=== PATIENT | female | born 1965 | race Caucasian/White ===

== ENCOUNTER 2020-06-02 11:43 | Outpatient (CLI) | payer BC, SELFPAY ==
--- NOTE | 2020-06-02 11:50 | MM_ITS ---
WS: [id number] BILATERAL SCREENING DIGITAL MAMMOGRAM WITH CAD HISTORY: SCREENING COMPARISON: 07/12/2017 and 10/18/2013 Bilateral CC and MLO views submitted. Computer aided detection analyzed. Breast composition: The breasts are heterogeneously dense, which may obscure small masses. No suspici ous masses, microcalcifications or architectural distortion. MM/[place] [id number] IMPRESSION: BI-RADS: 2-Benign FOLLOW UP: 1 Year Follow-up
--- NOTE | 2020-07-16 12:30 | PM.HP ---
Providers/Chief Complaint Admitting Physician: General Surgery Gold Nova MD Primary Care Provider: Martina Bee MD Chief Complaint: screening History of Present Illness Ladonna Ashley is a 55 year old female who underwent a screening colonoscopy 3 days ago. At that time the endoscopist (Dr. Mg) saw an inflamed polypoid lesion with a small amount of blood and some mucopurulent material around it in what he thought was the mid descending colon. A cold snare was used to remove the lesion but it subsequently became clear that this was probably an area involving an inverted diverticulum. The area was inked and the patient was sent home on oral antibiotics as a precaution. The following day she said she did fine. She had resumed a regular diet. Yesterday, however, she developed some lower abdominal cramping and initially just thought she was having some gas pain. She did have some loose stool last night but her abdominal pain continued until this morning when it was so bad that she came into the emergency department. She said she did have a low-grade fever last night. A CAT scan today showed evidence of some free air and an inflammatory process around the sigmoid colon. She says she has not been passing any more stool or flatus since yesterday. Review of Systems General: Reports: 10 or more systems reviewed and unremarkable except in HPI and below Const: Reports: fever(s) GI: Reports: abdominal pain and diarrhea Medications/Allergies Home Medications Medication Instructions Recorded Confirmed Last Taken Type estradiol 0.5 mg tablet 0.5 mg PO QAM 04/27/20 07/16/20 07/15/20 History medroxyprogesterone 5 mg PO QAM 07/09/20 07/16/20 07/15/20 History ciprofloxacin HCl [Cipro] 500 mg PO BID #10 tab 07/13/20 07/16/20 07/15/20 Rx metronidazole 250 mg PO BID #10 tab 07/13/20 07/16/20 07/15/20 Rx cholecalciferol (vitamin D3) 125 mcg PO QAM 07/16/20 07/16/20 07/15/20 History [Vitamin D3] gabapentin See Rx Instructions .ROUTE .COMPLEX 07/16/20 07/16/20 Unknown History Allergies Allergy/AdvReac Type Severity Reaction Status Date / Time No Known Allergies Allergy Verified 07/16/20 10:26 PFSH Acute PFSH: Medical History (Updated 07/16/20 @ 12:49 by Gold Nova MD) Diverticulosis Family history of colon cancer in father Surgical History (Updated 07/16/20 @ 12:49 by Gold Nova MD) History of ear surgery Left -- 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 She currently does not appear to be in any acute distress. The pupils seem equal. No carotid bruits are heard. The lungs are clear anteriorly. The heart is regular. The abdomen is fairly quiet but is not distended. She does have some scattered mild tenderness but has more significant tenderness in the left lower quadrant. No obvious masses are palpated. The extremities reveal no edema. Neurologically the patient appears to be grossly intact. Data Other Labs: Pathology/colonoscopy specimen 07/13/2020: Final Diagnosis A. Colon, descending colon polyp , polypectomy: ?Benign reactive severely inflamed colonic mucosa with acute cryptitis and crypt abscesses (polypoid appearance). ?No dysplasia or malignancy identified. CT Abd/Pel: Radiologist's impression: CT abdomen/pelvis 07/16/2020 IMPRESSION: 1. Moderate amount of free air in the peritoneal cavity. 2. Extensive inflammatory changes with several adjacent foci of free air involving the medial sigmoid colon. This may be the site of perforation. 3. Small amount of free fluid in the pelvis. 4. No abscess. 5. Hepatic cysts. A&P Assessment and plan (1) Perforation of sigmoid colon: The CAT scan would suggest that the patient has more of a sigmoid perforation as opposed to any area in the descending colon. I have to assume that this was the same area that was involved in some apparent focal but probable acute diverticulitis at the time of the colonoscopy 3 days ago. After reviewing the CAT scan, it is clear that the patient has evidence of free air but it is not a tremendous amount. With all due respect to the radiologist, I would consider this to be a small amount of free air as opposed to moderate, for what it is worth. I told the patient that since she has been eating a regular diet since Monday and passing stool in addition to the fact that she already has significant inflammatory changes, unfortunately I do not think that doing surgery and repairing this area is going to be a very smart option and is probably doomed to failure. We discussed a Dedra procedure in some detail. Given the fact that she does not have a tremendous amount of free air, however, I discussed the conservative option of putting her on some broad-spectrum intravenous antibiotics initially to see if she improves and if there is any chance that we can try to avoid surgery; I made her aware that sometimes small perforations can seal over and heal without surgery. She would like to give that a try before proceeding to the operating room. I will start the patient on broad-spectrum intravenous antibiotics. Her condition will be reassessed at least daily if not more often. If she shows evidence of improvement, then I think continued conservative management may be possible. If she does not, or certainly if she worsens, then I am afraid that we will need to proceed to the operating room for a likely Dedra procedure. Status: Acute Attestations Medical Necessity Statement*: Based on my medical assessment, presenting symptoms, medical accuity and consideration of surgical therapy, I expect this patient will require treatment in the hospital for a period spanning at least 2 midnights. Coding Level of Care Code Acute Clinical Research Administrator for Pierre Gamez Diagnoses Perforation of sigmoid colon K63.1
== END 2020-06-02 11:44 | disposition home or self-care (01) ==
LOC: RADSHAW 11:47
PROVIDERS: Family Provider Family Medicine; PCP Family Medicine; Visit Provider Family Medicine
DX: Z12.31 Encounter for screening mammogram for malignant neoplasm of breast (principal)
CPT/HCPCS: 12345; 77067

== ENCOUNTER 2020-07-13 09:16 | Day surgery (SDC) | payer BC, SELFPAY ==
[2020-07-09 12:07] VITALS: BMI 28.3
[2020-07-13 09:32] VITALS: PULSE 88; RESP 18; TEMP 36.1; O2SAT 97
[2020-07-13 09:41] VITALS: BP 167/91
[2020-07-13] MEDS: sodium chloride 0.9% 1,000 ML 30 ML IV (09:43)
--- NOTE | 2020-07-13 09:57 | ANES.PREANE2 ---
Pre-Anesthetic Assessment Pre-Anesthetic Assessment: Height/Weight: Height 1.6 m Weight 72.575 kg Temp Pulse Resp BP Pulse Ox 97.0 F L 88 18 167/91 97 07/13/20 09:32 07/13/20 09:32 07/13/20 09:32 07/13/20 09:41 07/13/20 09:32 Preop Diagnosis: Family Hx colon cancer Proposed Procedure: Operation Date: 07/13/20 10:30 Proposed Procedures p Colonoscopy 70080 Z80.0(Not Applicable) - Neo Mg MD Familial anesthetic complications: None Was Beta Jett taken within 24 hours: N/A Last intake: Intake Last Liquid Date 07/12/20 Last Liquid Time 20:00 Last Solid Date 07/11/20 Last Solid Time 21:00 Social: Social History: No alcohol and No tobacco Exam: Pre-Anes Outpt Exam: alert, oriented x 3, clear to auscultation bilaterally and regular rate & rhythm Airway: Cervical ROM: WNL MP: 1 Dentition: Full Anesthetic Plan: ASA status: 1 Anesthesia: MAC Risk of > 500 ml blood loss (7ml/kg in children): No Meds/Allergies Current Medications: Current Medications Generic Name Dose Route Start Last Admin Trade Name Freq PRN Reason Stop Dose Admin Sodium Chloride 1,000 mls @ 30 ml s/hr 07/13/20 09:30 07/13/20 09:43 Sodium Chloride 0.9% IV 30 mls/hr .Q24H CAROLINE Administration PFSH Anesthesia PFSH: Family History (Updated 04/27/20 @ 09:[address]) Mother Diabetes Hypertension Sister Hypothyroidism Father Cancer Social History (Updated 05/13/20 @ 13:[address]) Smoking and tobacco status: former smoker Alcohol intake: never History of recent travel: No Data Anesthesia Cardiac Studies: No Data to Display
--- NOTE | 2020-07-13 10:01 | W.PM.OPSFHP ---
Same Day Surgery H&P Indication for Procedure/HPI DATE OF PROCEDURE: July 13, 2020 CHIEF COMPLAINT/INDICATIONFOR SURGICAL PROCEDURE: Family history of colon cancer PREOP DIAGNOSIS: Family Hx colon cancer PLANNED PROCEDRUE: Operation Date: 07/13/20 10:30 Proposed Procedures p Colonoscopy 00324 Z80.0(Not Applicable) - Neo Mg MD Medications/Allergies* Home Medications Medication Instructions Recorded Confirmed Type cholecalciferol (vitamin D3) 50 50 mcg PO DAILY 04/27/20 07/13/20 History mcg (2,000 unit) chewable tablet estradiol 0.5 mg tablet 0.5 mg PO DAILY 04/27/20 07/13/20 History medroxyprogesterone 5 mg PO DAILY 07/09/20 07/13/20 History Allergies/Adverse Reactions Allergy/AdvReac Type Severity Reaction Status Date / Time No Known Allergies Allergy Verified 07/13/20 09:27 Current Medications: Generic Name Dose Route Start Last Admin Trade Name Freq PRN Reason Stop Dose Admin Sodium Chloride 1,000 mls @ 30 mls/hr 07/13/20 09:30 07/13/20 09:43 Sodium Chloride 0.9% IV 30 mls/hr .Q24H CAROLINE Administration Pertinent History/Comorbid Conditions* Family History (Updated 04/27/20 @ 09:27 by COSTA Brannon) Diabetes Mother Hypothyroidism Sister Cancer Father Hypertension Mother Social History Smoking and tobacco status: former smoker Alcohol intake: never History of recent travel: No Pertinent Exam Findings alert, oriented x 3, clear to auscultation bilaterally, regular rate & rhythm, operative site marked and procedure specific exam findings Recommendations Surgery/Procedure today Coding Level of Care Code Acute Perforating Machine Operator for Pierre Gamez
[2020-07-13 12:04] VITALS: BP 146/98; PULSE 73; RESP 16; TEMP 36.3; O2SAT 96
[2020-07-13] MEDS: ondansetron 2 mg/ML SDV 2 mL 4 MG IVP (12:27)
[2020-07-13] MEDS: cefTRIAXone 1,000 MG in sodium chloride 0.9% (plus) 50 ML 100 MG IV (12:35)
[2020-07-13 12:51] VITALS: BP 178/80; PULSE 67; RESP 16; O2SAT 98
--- NOTE | 2020-07-13 15:43 | ANE.PACU2 ---
Inpatient post-anesthesia follow up: Airway intact: Yes Vital signs: Temperature 97.4 F Pulse Rate 67 Respiratory Rate 16 Blood Pressure 178/80 Pulse Oximetry 98 Oxygen Delivery Me thod Room Air Oxygen Flow Rate Fraction of Inspir ed Oxygen Hydration adequate: Yes Nausea and vomiting: No Pain level: 1 Mental status: Baseline
== END 2020-07-13 13:09 | disposition home or self-care (01) ==
PROVIDERS: PCP Family Medicine; Visit Provider Internal Medicine
PROC: 0DJD8ZZ Inspection of Lower Intestinal Tract, Via Natural or Artificial Opening Endoscopic (ICD-10-PCS; CPT 45378; principal; 2020-07-13 10:30)
DX: K57.30 Diverticulosis of large intestine without perforation or abscess without bleeding (principal); Z80.0 Family history of malignant neoplasm of digestive organs; Z82.49 Family history of ischemic heart disease and other diseases of the circulatory system; Z83.3 Family history of diabetes mellitus; Z87.891 Personal history of nicotine dependence
CPT/HCPCS: 12345; 45381; 45385; 88305; 96374; J0696; J2405; J2704; J2710; J3010; J3490; J7030

== ENCOUNTER 2020-07-16 09:58 | Inpatient (IN) | payer BC, SELFPAY ==
[2020-07-16] VITALS (10 sets, daily range): BP systolic 122–157; BP diastolic 71–110; PULSE 86–110; RESP 16–20; TEMP 36.5–36.9; O2SAT 94–97; BMI 27.8
--- NOTE | 2020-07-16 10:08 | CT_ITS ---
WS: [id number] CT ABDOMEN AND PELVIS WITH CONTRAST HISTORY: Colon perforation TECHNIQUE: Imaging performed of the abdomen and pelvis with IV contrast. Single phase imaging of the abdomen. Coronal and sagittal reformats are submitted. All CT scans at [facility] use at least one of these dose optimization techniques: automated exposure control; mA and/or kV adjustment per patient size (includes targeted exams where dose is matched to clinical indication); or iterativ e reconstruction. IV CONTRAST: Omnipaque 300; 95 mL IV. Oral contrast: No DLP: 793.11 mGy.cm COMPARISON: None available. Lower thorax: Lung bases are clear. Heart is normal size. Small hiatal hernia. Liver/biliary system: Small hepatic cysts. The largest in the central liver measures 2.7 cm. No bile duct dilatation. Gallbladder: Normal. No gallstones or wall thickening. No pericholecystic fluid. Pancreas: Normal. Spleen: Normal. Adrenal glands: Normal. Right kidney: Normal. Left kidney: Normal. Aorta: Normal. Moderate amount of free air throughout the abdomen and pelvis. Pockets of free air surrounding the li sandra and spleen extending into the gallbladder fossa and around the celiac axis. There are several foc i of free air demonstrated throughout the abdominal cavity and into the pelvis. Lymphadenopathy: None. Free fluid: Small amount of free fluid in the pelvis. GI tract: Numerous diverticula are noted in the sigmoid colon. There is an area of marked inflammatio n with fat stranding and mucosal thickening involving the medial aspect of the sigmoid with adjacent small foci of air. This may be the site of perforation. Abdominal wall: Very small umbilical containing hernia. Pelvis: Small amount of free fluid in the pelvis. Uterus is midline and anteverted. No pelvic mass. Bones: Unremarkable. CT/CT abdomen pelvis w con* [id number] IMPRESSION: 1. Moderate amount of free air in the peritoneal cavity. 2. Extensive inflammatory changes with several adjacent foci of free air invol ving the medial sigmoid colon. This may be the site of perforation. 3. Small amount of free fluid in the pelvis. 4. No abscess. 5. Hepatic cysts. Notified Mario Alberto Joshua MD at 07/16/2020 11:05 AM.
--- NOTE | 2020-07-16 10:12 | W.ED.ABDPA2 ---
HPI - Abdominal Pain General: Chief Complaint: Abdominal Pain Stated Complaint: COLONOSCOPY ISSUES Time Seen by Provider: 07/16/20 10:05 Source: patient, family, RN notes reviewed and old records reviewed Mode of arrival: ambulatory Limitations: no limitations History of Present Illness: HPI narrative: This patient is a 55-year-old female who presents to the emergency department for abdominal pain. Patient had a colonoscopy on Monday with Dr. Mg. Patient states that Dr. Mg thought he was snipping a polyp in her colon but ended up being a diverticuli causing a mild microperforation. Patient was placed on oral antibiotics and discharged home to follow-up with Dr. Mg today. Patient states in increased of abdominal pain and had a low-grade fever last night. But no fever upon arrival. Patient states that she just could not take the pain and come back to the emergency department today. Patient denies nausea or vomiting MD elicited complaint: abdominal pain Pertinent past history: diverticulitis Onset (ago): day(s) (3) Pain Consistency: constant Location: Diffuse Severity: moderate Quality: aching Radiation: none Migration to: no migration Exacerbating factors: nothing Relieving factors: nothing Associated Symptoms: Reports bloating and GI cramping; Denies chills, constipation, diarrhea, fever(s), hematemesis, nausea and vomiting Review of Systems General: Reports: 10 or more systems reviewed and unremarkable except in HPI and below Const: Reports: change in appetite; Denies: fever(s), chills or body aches ENMT: Denies: throat pain or mouth pain Card: Denies: chest pain, palpitations or irregular heart rhythm Resp: Denies: dyspnea GI: Reports: abdominal pain, bloating and GI cramping; Denies: nausea, vomiting, hematemesis, diarrhea or constipation : Denies: flank pain Skin/Breast: Denies: skin tenderness PFSH ED PFSH: Family History Mother Diabetes Hypertension Sister Hypothyroidism Father Cancer Social History Smoking and tobacco status: former smoker Alcohol intake: never History of recent travel: No Physical Exam Const: COMMON NORMALS: no acute distress, average body habitus, patient oriented x3, healthy appearing, alert and well nourished GENERAL APPEARANCE: cooperative ORIENTATION/CONSCIOUSNESS: Yes awake, Yes oriented to person, Yes oriented to place and Yes oriented to time HENMT: COMMON NORMALS: atraumatic and hearing grossly normal bilaterally HEAD & SCALP: atraumatic Eye: COMMON NORMALS: Equal, round and reactive pupils present PUPIL: Yes Equal, round and reactive pupils present Neck/C-Spine: COMMON NORMALS: no JVD Chest: COMMONS NORMALS: normal inspection of the chest and normal palpation of entire chest wall Resp: COMMON NORMALS: normal respiratory effort, No retractions, No use of accessory muscles, clear to auscultation bilaterally and percussion normal AUSCULTATION: clear to auscultation bilaterally PERCUSSION: percussion normal Cardio: COMMON NORMALS: no JVD, regular rate and regular rhythm RATE: regular rate RHYTHM: regular rhythm GI: AUSCULTATION: Yes Hypoactive bowel sounds present PALPATION: Yes Tenderness to palpation present (GI) and Yes Guarding due to palpation present (GI) RECTAL EXAM: deferred Neuro: COMMON NORMALS: patient oriented x3 SENSORIUM/ORIENTATION: Yes alert, Yes oriented to person, Yes oriented to place and Yes oriented to time Course Consultations: Consultation #1: Patient was seen and examined by Dr. Nova general surgery he states that he will admit the patient to the hospital for continued observation and IV antibiotics due to perforated Time: 12:42 Vital Signs: Vital signs: Vital Signs Temperature 98.2 F 07/16/20 10:03 Pulse Rate 96 07/16/20 12:36 Respiratory Rate 16 07/16/20 12:36 Blood Pressure 141/84 07/16/20 12:36 Pulse Oximetry 96 07/16/20 12:36 MDM - Abdominal Pain Lab Data: Labs: Lab Results 07/16/20 07/16/20 07/16/20 Range/Units 10:29 10:29 10:29 WBC 18.1 H (4.0-10.0) 10^3/ uL RBC 4.74 (4.1-5.3) 10^6/u L Hgb 14.5 (11.5-15.3) g/dL Hct 43.0 (37.0-47.0) % MCV 90.7 (81-99) fL MCH 30.6 (28.0-34.0) pg MCHC 33.7 (30.0-36.0) g/dL RDW 12.6 (12.1-15.1) % Plt Count 293 (130-400) 10^3/c mm MPV 9.8 (7.4-10.4) fL Neut % (Auto) 87.3 % Lymph % (Auto) 8.2 % [place] % (Auto) 3.5 % Eos % (Auto) 0.0 % Baso % (Auto) 0.2 % Neut # (Auto) 15.76 H (1.8-7.7) 10^3/u L Lymph # (Auto) 1.5 (0.8-4.8) 10^3/u L [place] # (Auto) 0.6 (0.2-0.9) 10^3/u L Eos # (Auto) 0.0 (0.0-0.8) 10^3/u L Baso # (Auto) 0.0 (0.0-0.1) 10^3/u L Nucleated RBC % (a uto) 0 % Nucleated RBCs # 0.0 /100WBC PT 14.70 (12.1-14.9) SECO NDS INR 1.12 (0.8-1.2) APTT 32.7 (23.9-36.7) SECO NDS Sodium 138 (136-145) mmol/L Potassium 3.6 (3.5-5.1) mmol/L Chloride 102 (98-107) mmol/L Carbon Dioxide 26 (22-29) mmol/L Anion Gap 13.6 (5-19) BUN 8 (6-20) mg/dL Creatinine 0.7 (0.5-0.9) mg/dL GFR Calculation 86.2 L (90-130) mL/min Glucose 151 H (65-115) mg/dL Calculated Osmolal ity 287 (285-295) mOsm/k g Calcium 9.3 (8.5-10.5) mg/dL Total Bilirubin 0.7 (0.15-1.2) mg/dL AST 32 (0-32) U/L ALT 31 (0-33) U/L Alkaline Phosphata se 95 (35-105) IU/L Total Protein 6.6 (6.6-8.7) g/dL Albumin 4.1 (3.5-5.2) g/dL Globulin 2.5 (1.3-4.6) g/dL Lipase 11 L (13-60) U/L Imaging Data ^: CT Abd/Pel: Attestation: I personally reviewed and interpreted this imaging study as follows: Radiologist's impression: IMPRESSION: 1. Moderate amount of free air in the peritoneal cavity. 2. Extensive inflammatory changes with several adjacent foci of free air involving the medial sigmoid colon. This may be the site of perforation. 3. Small amount of free fluid in the pelvis. 4. No abscess. 5. Hepatic cysts. Discharge Plan Discharge Patient Disposition: Admitted As Inpatient Clinical Impression: Bowel perforation, Diverticulitis Condition: Stable Coding Level of Care Code ED Extended Day Teacher for Pierre Fwd Exam Comprehensive
--- NOTE | 2020-07-16 10:29 | PC.NURSE ---
Patient educated urine sample needed. Patient reports that she is unable to go at this time. Educated we need on as soon as we can and to use the call light when she is able to go. Patient has no needs at this time. Will continue to monitor patient.
[2020-07-16] MEDS: sodium chloride 0.9% 1,000 ML 999 ML IV (10:32)
[2020-07-16] MEDS: ondansetron 2 mg/ML SDV 2 mL 4 MG IVP ×2 (10:33→15:01)
[2020-07-16] MEDS: morphine 4 mg/mL SDV 1 mL IVP (10:33)
[2020-07-16] MEDS: iohexol 300 mg/mL 100 mL Btl IV (10:46)
[2020-07-16 10:54] LABS: Basophils % 0.2 %; Hemoglobin 14.5 g/dL (11.5-15.3); Lymphocytes # 1.5 10^3/uL (0.8-4.8); Lymphocytes % 8.2 %; Mean Corpuscular HGB Conc 33.7 g/dL (30.0-36.0); Mean Corpuscular Hemoglobin 30.6 pg (28.0-34.0); Mean Corpuscular Volume 90.7 fL (81-99); Mean Platelet Volume 9.8 fL (7.4-10.4); Monocytes # 0.6 10^3/uL (0.2-0.9); Monocytes % 3.5 %; Neutrophils # 15.76 10^3/uL (1.8-7.7); Neutrophils % 87.3 %; Nucleated Red Blood Cells % 0 %; Platelet Count 293 10^3/cmm (130-400); Red Blood Count 4.74 10^6/uL (4.1-5.3); Red Cell Distribution Width 12.6 % (12.1-15.1); White Blood Count 18.1 10^3/uL (4.0-10.0)
[2020-07-16 11:05] LABS: Alanine Aminotransferase 31 U/L (0-33); Albumin Level 4.1 g/dL (3.5-5.2); Alkaline Phosphatase 95 IU/L (35-105); Anion Gap 13.6 (5-19); Aspartate Amino Transferase 32 U/L (0-32); Blood Urea Nitrogen 8 mg/dL (6-20); Calcium 9.3 mg/dL (8.5-10.5); Carbon Dioxide 26 mmol/L (22-29); Chloride 102 mmol/L (98-107); Globulin 2.5 g/dL (1.3-4.6); Glomerular Filtration Rate 86.2 mL/min (90-130); Glucose 151 mg/dL (65-115); Lipase 11 U/L (13-60); Osmolality Calculated 287 mOsm/kg (285-295); Potassium 3.6 mmol/L (3.5-5.1); Sodium 138 mmol/L (136-145); Total Bilirubin 0.7 mg/dL (0.15-1.2); Total Protein 6.6 g/dL (6.6-8.7)
[2020-07-16 11:08] LABS: INR 1.12 (0.8-1.2); Partial Thromboplastin Time 32.7 SECONDS (23.9-36.7)
[2020-07-16] MEDS: metroNIDAZOLE IV 500 MG/100 ML PREMIX 100 MG IV ×2 (11:32→18:35)
[2020-07-16] MEDS: levofloxacin-dextrose 5 % 750 MG/150 ML PREMIX 100 MG IV (11:33)
[2020-07-16 13:26] LABS: Add Urine Microscopic? YES; Bilirubin Urine Neg (Negative); Blood Urine Trace (Negative); Glucose Urine UA Trace (Normal); Ketones Urine 1+ (Negative); Leukocyte Esterase Urine Negative (Negative); Nitrate Urine Negative (Negative); Protein Urine Neg (Negative); Specific Gravity, Urine 1.005 (1.005-1.030); Urine Appearance Clear (CLEAR); Urine Color Yellow (Yellow); Urobilinogen Urine Norm (Negative)
[2020-07-16 13:50] LABS: Bacteria Urine 1+ /hpf; RBC Urine 0-4 /hpf (0-2); Transitional Epi Cells Urine 0-4 /hpf
[2020-07-16 13:51] LABS: Add Urine Culture? No
[2020-07-16] MEDS: famotidine 20 mg/2 mL INJ IVP (15:00)
[2020-07-16] MEDS: heparin 5,000 unit/mL INJ 1 mL 5000 UNIT SUBCUT (15:01)
[2020-07-16] MEDS: D5-NS 0.45% + KCL 20 mEq 20 MEQ/1,000 ML BAG 100 MEQ IV (15:01)
[2020-07-16] MEDS: piperacillin-tazobactam 3.375 GM in sodium chloride 0.9% (plus) 50 ML IV (15:01)
[2020-07-17] VITALS (8 sets, daily range): BP systolic 111–138; BP diastolic 70–86; PULSE 84–97; RESP 16–22; TEMP 36.5–37.1; O2SAT 94–98
[2020-07-17] MEDS: morphine 4 mg/mL SDV 1 mL IVP ×2 (00:12→04:43)
[2020-07-17] MEDS: ondansetron 2 mg/ML SDV 2 mL 4 MG IVP ×4 (00:14→14:53)
[2020-07-17] MEDS: piperacillin-tazobactam 3.375 GM in sodium chloride 0.9% (plus) 50 ML IV ×3 (00:33→17:08)
[2020-07-17] MEDS: D5-NS 0.45% + KCL 20 mEq 20 MEQ/1,000 ML BAG 100 MEQ IV ×2 (01:18→14:46)
[2020-07-17 02:37] LABS: Basophils % 0.2 %; Eosinophils % 0.2 %; Hematocrit 37.9 % (37.0-47.0); Hemoglobin 12.5 g/dL (11.5-15.3); Lymphocytes # 1.7 10^3/uL (0.8-4.8); Lymphocytes % 11.5 %; Mean Corpuscular Hemoglobin 30.3 pg (28.0-34.0); Mean Corpuscular Volume 91.8 fL (81-99); Mean Platelet Volume 9.8 fL (7.4-10.4); Monocytes # 0.7 10^3/uL (0.2-0.9); Neutrophils % 82.7 %; Nucleated Red Blood Cells % 0 %; Platelet Count 239 10^3/cmm (130-400); Red Blood Count 4.13 10^6/uL (4.1-5.3); White Blood Count 14.6 10^3/uL (4.0-10.0)
[2020-07-17] MEDS: famotidine 20 mg/2 mL INJ IVP ×2 (03:17→14:09)
[2020-07-17 03:21] LABS: Anion Gap 12.8 (5-19); Blood Urea Nitrogen 5 mg/dL (6-20); Calcium 8.6 mg/dL (8.5-10.5); Carbon Dioxide 24 mmol/L (22-29); Chloride 106 mmol/L (98-107); Glucose 173 mg/dL (65-115); Osmolality Calculated 289 mOsm/kg (285-295); Potassium 3.8 mmol/L (3.5-5.1); Sodium 139 mmol/L (136-145)
[2020-07-17] MEDS: metroNIDAZOLE IV 500 MG/100 ML PREMIX 100 MG IV ×3 (03:30→18:00)
[2020-07-17] MEDS: heparin 5,000 unit/mL INJ 1 mL 5000 UNIT SUBCUT ×2 (03:30→14:09)
--- NOTE | 2020-07-17 08:46 | PM.PN ---
Subjective Subjective: Interval history: The patient says she feels about the same. She is not passing any flatus. Vitals/I&O/Wt Last Vital Signs Temp 97.8 F 07/17/20 07:05 Pulse 87 07/17/20 07:05 Resp 18 07/17/20 07:05 BP 124/79 07/17/20 07:05 Pulse Ox 94 07/17/20 07:05 07/16/20 07/17/20 07/17/20 22:59 06:59 14:59 Intake Total 150 / 2450 1050 / 2450 Balance 150 / 2450 1050 / 2450 Weight last 48 hrs Weight 157 lb Physical Exam Narrative: EXAM NARRATIVE: The patient is afebrile. The computer indicates she has not urinated but she said she has been urinating all night long. She actually has better bowel sounds this morning. She does have continued tenderness in the abdomen but no worse than yesterday. Data : 07/17/20 02:03 07/17/20 02:03 Micro: Microbiology 07/16/20 12:03 Blood Culture - Preliminary Blood SPECIMEN COLLECTED 07/16/20 10:29 Blood Culture - Preliminary Blood SPECIMEN COLLECTED A&P Assessment and plan (1) Perforation of sigmoid colon: White blood cell count has improved. The patient is afebrile. I made her aware that sometimes it takes a couple of days for people to start feeling better, even if the antibiotic regimen is working well. Continue intravenous antibiotics. Status: Acute Attestations Medical Necessity Statement*: Patient requires continued inpatient care for sigmoid perforation/intravenous antibiotics. Coding Level of Care Code Acute Drawer In Jacquard Loom for Pierre Gamez Diagnoses Perforation of sigmoid colon K63.1
--- NOTE | 2020-07-17 11:31 | PC.NURSE ---
Vital Signs V/s documented by student nurse was reviewed by this psychiatric nursing assistant.
--- NOTE | 2020-07-17 11:51 | PC.NURSE ---
Review of student nurse documentation complete. Patient vital signs 138/86, HR 97, R 22, T max 98.7. Pain rated 6/10. Primary nurse notified. Patient refused shower and linen change due to waiting on to arrive.
--- NOTE | 2020-07-17 12:19 | PC.NURSE ---
nursing students got vital signs
--- NOTE | 2020-07-17 14:02 | PC.CHAP ---
Pastoral Care Encounter/Spiritual Assessment Type of Contact [] Declined drill press tender visit [] Patient/Family/Request visit [] Outpatient visit [] Follow-up visit [] Physician referral [] Code/Alert [xx] Routine visit [] Staff referral [] Actively dying [] Patient sleeping [] Family support [] [] Out of room [] Palliative care [] [] Receiving care in room [] Pre-surgical visit [] Trauma [] Long length of stay [] ICU visit [] Other: Relational/Emotional Strength [xx] Patient feels connected with others/family/visitors/staff [] Distress [] Loneliness/isolation [] Abandonment Spirituality of Patient [xx] Person of Coco [xx] Attends Mormonism of their [place] [xx] Believes in Prayer [xx] Reads Bible or Anglican materials [] There are Spiritual issues to be addressed Hydroelectric Production Technician Interventions [xx] Prayer [xx] Active listening [xx] Non-anxious presence [] Spiritual/emotional support [] Crisis/trauma care [] Spiritual counseling [] Bereavement support [] Provided bereavement packet [] Provided Bible/devotional materials [] Provided toy/stuffed animal, coloring book to patient or family member [] Provided Communion [] Anointing/[place] [] Salvation [xx] Completed spiritual assessment [] Other: Impact on Illness or Injury [] Angry [] Fearful [] Anxious [] Often cries [] Exhaustion [] Unable to work [] Unable to attend latter-day [] Unable to walk/stand [] Unable to read [] Unable to drive [] Unable to eat/drink [] Unable to sleep [] Unable to be with family [] Patient intubated [] Other: Summary Patient's is able to visit her daily and bring her items she requests. Patient should resume normal activities once she is discharged. Patient requested special prayer that the antibiotics she is on will begin action immediately so she can get well and leave sooner. Time spent with patient 12 minutes
[2020-07-18] VITALS (7 sets, daily range): BP systolic 113–135; BP diastolic 63–83; PULSE 77–92; RESP 15–20; TEMP 36.5–36.9; O2SAT 93–96
[2020-07-18] MEDS: piperacillin-tazobactam 3.375 GM in sodium chloride 0.9% (plus) 50 ML IV ×3 (00:19→17:28)
[2020-07-18] MEDS: famotidine 20 mg/2 mL INJ IVP ×2 (02:42→17:27)
[2020-07-18] MEDS: metroNIDAZOLE IV 500 MG/100 ML PREMIX 100 MG IV ×3 (02:44→21:33)
[2020-07-18] MEDS: D5-NS 0.45% + KCL 20 mEq 20 MEQ/1,000 ML BAG 100 MEQ IV ×2 (02:44→17:27)
[2020-07-18] MEDS: heparin 5,000 unit/mL INJ 1 mL 5000 UNIT SUBCUT ×2 (02:44→17:27)
[2020-07-18 04:58] LABS: Basophils % 0.2 %; Eosinophils # 0.1 10^3/uL (0.0-0.8); Eosinophils % 0.9 %; Hematocrit 38.6 % (37.0-47.0); Hemoglobin 12.5 g/dL (11.5-15.3); Lymphocytes % 15.9 %; Mean Corpuscular HGB Conc 32.4 g/dL (30.0-36.0); Mean Corpuscular Hemoglobin 30.6 pg (28.0-34.0); Mean Corpuscular Volume 94.4 fL (81-99); Mean Platelet Volume 10.2 fL (7.4-10.4); Monocytes # 0.7 10^3/uL (0.2-0.9); Monocytes % 5.5 %; Neutrophils # 9.48 10^3/uL (1.8-7.7); Neutrophils % 77.1 %; Nucleated Red Blood Cells % 0 %; Platelet Count 259 10^3/cmm (130-400); Red Blood Count 4.09 10^6/uL (4.1-5.3); White Blood Count 12.3 10^3/uL (4.0-10.0)
[2020-07-18 05:21] LABS: Anion Gap 10.6 (5-19); Blood Urea Nitrogen 4 mg/dL (6-20); Calcium 8.5 mg/dL (8.5-10.5); Carbon Dioxide 26 mmol/L (22-29); Chloride 104 mmol/L (98-107); Glomerular Filtration Rate 86.2 mL/min (90-130); Glucose 156 mg/dL (65-115); Osmolality Calculated 284 mOsm/kg (285-295); Potassium 3.6 mmol/L (3.5-5.1); Sodium 137 mmol/L (136-145)
--- NOTE | 2020-07-18 08:01 | PM.PN ---
Subjective Subjective: Interval history: The patient says she is doing better today. She is hungry. She has had 2 loose bowel movements. Her abdominal pain has decreased considerably. Vitals/I&O/Wt Last Vital Signs Temp 97.9 F 07/18/20 07:18 Pulse 82 07/18/20 07:18 Resp 17 07/18/20 07:18 BP 135/79 07/18/20 07:18 Pulse Ox 93 07/18/20 07:18 07/17/20 07/18/20 07/18/20 22:59 06:59 14:59 Intake Total 250 / 2300 1000 / 2300 Output Total 800 / 1600 600 / 1600 500 / 500 Balance -550 / 700 400 / 700 -500 / -500 Weight last 48 hrs Weight 157 lb Physical Exam Narrative: EXAM NARRATIVE: Bowel sounds are present. The patient's tenderness is clearly improved on exam today. Data : 07/18/20 03:52 07/18/20 03:52 Micro: Microbiology 07/16/20 12:03 Blood Culture - Preliminary Blood NEGATIVE TO DATE 07/16/20 10:29 Blood Culture - Preliminary Blood NEGATIVE TO DATE A&P Assessment and plan (1) Perforation of sigmoid colon: Patient remains afebrile and white blood cell count continues to defervesce. Clinical improvement in the patient's level of pain. I am going to allow her a clear liquid diet. Continue intravenous antibiotics. Status: Acute Attestations Medical Necessity Statement*: Patient requires continued inpatient care for intravenous antibiotics following sigmoid perforation. Coding Level of Care Code Acute Bacteriologist Industrial for Pierre Gamez Diagnoses Perforation of sigmoid colon K63.1
[2020-07-19] MEDS: piperacillin-tazobactam 3.375 GM in sodium chloride 0.9% (plus) 50 ML IV ×3 (00:12→16:00)
[2020-07-19 03:48] VITALS: BP 123/69; PULSE 78; RESP 18; TEMP 36.6; O2SAT 96
[2020-07-19] MEDS: heparin 5,000 unit/mL INJ 1 mL 5000 UNIT SUBCUT ×2 (03:57→14:23)
[2020-07-19] MEDS: famotidine 20 mg/2 mL INJ IVP ×2 (03:58→14:23)
[2020-07-19] MEDS: D5-NS 0.45% + KCL 20 mEq 20 MEQ/1,000 ML BAG 100 MEQ IV ×2 (04:00→20:48)
[2020-07-19] MEDS: metroNIDAZOLE IV 500 MG/100 ML PREMIX 100 MG IV ×3 (04:01→20:44)
[2020-07-19 05:29] LABS: Basophils % 0.3 %; Eosinophils # 0.2 10^3/uL (0.0-0.8); Eosinophils % 1.9 %; Hematocrit 37.1 % (37.0-47.0); Lymphocytes # 2.3 10^3/uL (0.8-4.8); Lymphocytes % 25.2 %; Mean Corpuscular HGB Conc 32.3 g/dL (30.0-36.0); Mean Corpuscular Volume 92.8 fL (81-99); Mean Platelet Volume 10.3 fL (7.4-10.4); Monocytes # 0.6 10^3/uL (0.2-0.9); Monocytes % 6.7 %; Neutrophils # 5.92 10^3/uL (1.8-7.7); Neutrophils % 65.5 %; Nucleated Red Blood Cells % 0 %; Platelet Count 283 10^3/cmm (130-400); Red Cell Distribution Width 12.9 % (12.1-15.1); White Blood Count 9.1 10^3/uL (4.0-10.0)
[2020-07-19 06:05] LABS: Anion Gap 12.7 (5-19); Blood Urea Nitrogen 4 mg/dL (6-20); Calcium 8.6 mg/dL (8.5-10.5); Carbon Dioxide 24 mmol/L (22-29); Chloride 106 mmol/L (98-107); Glucose 142 mg/dL (65-115); Osmolality Calculated 287 mOsm/kg (285-295); Potassium 3.7 mmol/L (3.5-5.1); Sodium 139 mmol/L (136-145)
[2020-07-19 07:01] VITALS: BP 116/76; PULSE 76; RESP 16; TEMP 36.4; O2SAT 94
--- NOTE | 2020-07-19 10:40 | P.PN_ITS ---
Subjective Subjective: Interval history: The patient continues to feel better daily. She is passing flatus. Her appetite has increased. She would like to try some soft food if possible. Vitals/I&O/Wt Last Vital Signs Temp 97.5 F L 07/19/20 07:01 Pulse 76 07/19/20 07:01 Resp 16 07/19/20 07:01 BP 116/76 07/19/20 07:01 Pulse Ox 94 07/19/20 07:01 07/18/20 07/19/20 07/19/20 22:59 06:59 14:59 Intake Total 630 / 3310 1410 / 3310 240 / 240 Output Total 800 / 1600 Balance -170 / 1710 1410 / 1710 240 / 240 Physical Exam Narrative: EXAM NARRATIVE: Bowel sounds are present. The patient still has some mild abdominal tenderness but much improved since admission. Data : 07/19/20 03:11 07/19/20 03:11 A&P Assessment and plan (1) Perforation of sigmoid colon: The patient remains afebrile and her white blood cell count has returned to normal. Clinically she is much more comfortable and would like to try to eat. Continue intravenous antibiotics. Soft diet. I discussed a low fiber diet with the patient over the next 1 to 2 weeks before converting back to a regular diet. Status: Acute Attestations Medical Necessity Statement*: Patient requires continued inpatient care for intravenous antibiotics following sigmoid perforation. Coding Level of Care Code Acute C.O.D. Audit Clerk for Pierre Gamez Diagnoses Perforation of sigmoid colon K63.1
[2020-07-19 11:03] VITALS: BP 151/84; PULSE 87; RESP 16; TEMP 36.4; O2SAT 96
[2020-07-19 15:14] VITALS: BP 130/79; PULSE 74; RESP 16; TEMP 36.8; O2SAT 95
[2020-07-19 19:54] VITALS: BP 132/83; PULSE 77; RESP 20; TEMP 36.8; O2SAT 97
[2020-07-20] VITALS: BP 112/72; PULSE 76; RESP 18; TEMP 36.7; O2SAT 95
[2020-07-20] MEDS: piperacillin-tazobactam 3.375 GM in sodium chloride 0.9% (plus) 50 ML IV ×4 (00:30→23:52)
[2020-07-20] MEDS: heparin 5,000 unit/mL INJ 1 mL 5000 UNIT SUBCUT ×2 (01:52→13:28)
[2020-07-20] MEDS: famotidine 20 mg/2 mL INJ IVP ×2 (02:34→13:28)
[2020-07-20 04:00] VITALS: BP 120/79; PULSE 72; RESP 16; TEMP 36.6; O2SAT 95
[2020-07-20] MEDS: metroNIDAZOLE IV 500 MG/100 ML PREMIX 100 MG IV ×3 (04:52→20:09)
--- NOTE | 2020-07-20 05:42 | PC.NURSE ---
SHIFT SUMMARY Has rested well tonight without c/o. Continues to receive IV fluids and antibiotics. Urinating well. Has had no c/o nausea or pain. Abdomen is soft with some tenderness still mostly in L abd but says is getting better.
[2020-07-20 07:51] VITALS: BP 123/72; PULSE 81; RESP 18; TEMP 36.7; O2SAT 93
--- NOTE | 2020-07-20 09:56 | P.PN_ITS ---
Subjective Subjective: Interval history: The patient is feeling well. She denies any discomfort. She continues to pass flatus. She is tolerating a low residue diet. Vitals/I&O/Wt Last Vital Signs Temp 98.0 F 07/20/20 07:51 Pulse 81 07/20/20 07:51 Resp 18 07/20/20 07:51 BP 123/72 07/20/20 07:51 Pulse Ox 93 07/20/20 07:51 07/19/20 07/20/20 07/20/20 22:59 06:59 14:59 Intake Total 390 / 2530 390 / 2530 200 / 200 Output Total 1400 / 2400 300 / 2400 Balance -1010 / 130 90 / 130 200 / 200 Physical Exam Narrative: EXAM NARRATIVE: The patient has minimal left lower quadrant tenderness on my exam today. Data : 07/19/20 03:11 07/19/20 03:11 A&P Assessment and plan (1) Perforation of sigmoid colon: We have agreed to continue the intravenous antibiotics for 24 more hours. Assuming continued improvement, the patient will be discharged tomorrow on a low residue diet for 2 weeks. She will continue her antibiotics as an outpatient. Status: Acute Attestations Medical Necessity Statement*: The patient requires ongoing inpatient care for perforated sigmoid colon. Coding Level of Care Code Acute Engineer Operations And Maintenance for Pierre Gamez Diagnoses Perforation of sigmoid colon K63.1
[2020-07-20 11:29] VITALS: BP 122/75; PULSE 76; RESP 18; TEMP 36.9; O2SAT 95
[2020-07-20] MEDS: D5-NS 0.45% + KCL 20 mEq 20 MEQ/1,000 ML BAG 100 MEQ IV ×2 (13:28→23:52)
[2020-07-20 15:46] VITALS: BP 150/88; PULSE 78; RESP 18; TEMP 36.8; O2SAT 96
--- NOTE | 2020-07-20 18:44 | PC.NURSE ---
patient requesting anxiety medication for later tonight. Melter Loader notified Dr Bee of request.
[2020-07-20 19:33] VITALS: BP 144/80; PULSE 82; RESP 18; TEMP 37.1; O2SAT 94
[2020-07-21] VITALS: BP 118/73; PULSE 79; RESP 18; TEMP 36.8; O2SAT 95
[2020-07-21] MEDS: heparin 5,000 unit/mL INJ 1 mL 5000 UNIT SUBCUT (01:59)
[2020-07-21] MEDS: famotidine 20 mg/2 mL INJ IVP (01:59)
[2020-07-21 04:00] VITALS: BP 124/76; PULSE 74; RESP 18; TEMP 36.8; O2SAT 95
[2020-07-21] MEDS: metroNIDAZOLE IV 500 MG/100 ML PREMIX 100 MG IV (04:21)
--- NOTE | 2020-07-21 04:24 | PC.NURSE ---
Shift Summary Patient rested well. No complaints throughout the night, no pain. Up independently to bathroom when needed.
--- NOTE | 2020-07-21 07:03 | P.DS_ITS ---
Discharge Providers Date of Admission: 07/16/20 12:59 Date of Discharge: July 21, 2020 Attending Provider at Admission: Gold Nova MD Attending Provider at Discharge: Gold Nova MD Primary Care Provider: Martina Bee MD Diagnoses at Discharge Discharge Diagnosis (1) Perforation of sigmoid colon: Status: Acute Reason for Visit Reason for Visit: COLONOSCOPY ISSUES Hospital Course Hospital Course This is a 55-year-old white female who was undergoing a screening colonoscopy for a family history of colorectal carcinoma. She was found to have an inflamed polypoid lesion in the sigmoid colon which was removed, but upon removal it took on the appearance of a possible inverted diverticulum (ultimately the tissue showed evidence of inflamed colonic mucosa). The patient was sent home on oral antibiotics as a precaution. She did well at home for 24 hours but then developed significant abdominal pain and presented back to the emergency room where she was found to have a small amount of free intraperitoneal air by CAT scan. Options were discussed with her and we initially elected to take the conservative route and start her on broad-spectrum antibiotics. The patient's white blood cell count defervesced daily and she started to feel better each day. Her bowel function returned and she was started on a a clear liquid diet which she tolerated well; this was advanced to a low residue diet. By 07/21/2020 the patient felt like she was back to normal and had no evidence of abdominal pain on palpation. She had been afebrile for several days. Arrangements were made for her to be discharged once again on her oral antibiotics with plans to her to follow-up with her family physician as needed. She was instructed to return to the emergency room or to notify me or another physician if her abdominal pain returned or if other new symptoms appeared. Physical Exam Narrative: EXAM NARRATIVE: On the day of discharge, the patient had good bowel sounds and had absolutely no abdominal tenderness on palpation. Discharge Data Data Completed and Pending: Completed Studies During Hospitalization Category Date Time Status CT abdomen pelvis w con* [id number] Urge nt Cat Scan 07/16/20 10:08 Completed Pending at discharge Category Date Time Status Blood Culture Sta t Lab 07/16/20 12:03 Results Vitals: Last Vital Signs Temp 98.2 F 07/21/20 04:00 Pulse 74 07/21/20 04:00 Resp 18 07/21/20 04:00 BP 124/76 07/21/20 04:00 Pulse Ox 95 07/21/20 04:00 Discharge Plan Discharge Patient Disposition: Home Condition: Stable Prescriptions: Continued estradiol 0.5 mg tablet 0.5 mg PO QAM RF: 0 medroxyprogesterone 5 mg Tablet 5 mg PO QAM RF: 0 ciprofloxacin HCl [Cipro] 500 mg tablet 500 mg PO BID Qty: 10 RF: 0 metronidazole 500 mg tablet 250 mg PO BID Qty: 10 RF: 0 gabapentin 100 mg capsule See Rx Instructions .ROUTE .COMPLEX RF: 0 Vitamin D3 125 mcg (5,000 unit) Tablet 125 mcg PO QAM RF: 0 Discharge Orders: Discharge Order (Routine); Ordered 07/21/20 Ordered By: Gold Nova Referrals: Martina Bee MD [Primary Care Provider] - Discharge Diet: As Directed Discharge Activity: Increase activity as tolerated Patient Instructions: Ciprofloxacin (By mouth), Estradiol (By mouth), Medroxyprogesterone (By mouth), Metronidazole (By mouth), Gabapentin (By mouth), Vitamin D (By mouth), Diverticulitis (GEN), Diverticulosis Diet (GEN), Perforated Bowel (GEN) Activity Restrictions/Additional Instructions: 1. Continue antibiotics as instructed at home. 2. Low residue diet for 2 weeks, then may convert back to a high residue diet. Nursing: Please give patient a low residue diet instruction sheet upon discharge. 3. Return to the emergency room or notify a physician if abdominal pain returns or other new symptoms of concern come up. Otherwise, follow-up with your family physician as needed. Discharge Attestations Time Spent in Discharge Care*: less than 30 min Quality Metrics Clinical Quality Measures During this hospital stay, did patient experience: None Coding Level of Care Code Acute Fish Hatchery Superintendent for Pierre Gamez Diagnoses Perforation of sigmoid colon K63.1
[2020-07-21 07:08] VITALS: BP 134/83; PULSE 76; RESP 18; TEMP 36.7; O2SAT 93
--- NOTE | 2020-07-21 07:44 | PC.NURSE ---
Discharge instructions given to patient and patient verbalized understanding of instructions. patient called family for ride home.
[2020-07-21 08:22] VITALS: BP 134/83; PULSE 76; RESP 18; TEMP 36.7; O2SAT 93
--- NOTE | 2020-07-21 08:28 | PC.NURSE ---
patient walked to private vehicle by staff.
== END 2020-07-21 08:29 | disposition home or self-care (01) | DRG 921 ==
LOC: ER 12:44 → MEDSURG 13:08
PROVIDERS: Admitting Provider Surgery; Emergency Provider Emergency Medicine; PCP Family Medicine; Visit Provider Surgery
DX: K91.71 Accidental puncture and laceration of a digestive system organ or structure during a digestive system procedure (principal); Y84.8 Other medical procedures as the cause of abnormal reaction of the patient, or of later complication, without mention of misadventure at the time of the procedure; Y73.0 Diagnostic and monitoring gastroenterology and urology devices associated with adverse incidents; Z80.0 Family history of malignant neoplasm of digestive organs
CPT/HCPCS: 12345; 36415; 74177; 80048; 80053; 81001; 83690; 85025; 85610; 85730; 87040; 96372; 99283; J1644; J1956; J2270; J2405; J2543; J3490; J7030; Q9967; S0030

== ENCOUNTER 2021-10-05 14:29 | Outpatient (CLI) | payer BC, SELFPAY ==
--- NOTE | 2021-10-05 14:37 | MM_ITS ---
WS: [id number] BILATERAL 3D TOMOSYNTHESIS DIGITAL SCREENING MAMMOGRAPHY WITH CAD CLINICAL INFORMATION: SCREENING HISTORY: Screening mammogram. No current complaints. COMPARISON: June 02, 2020 TECHNIQUE: Bilateral CC and MLO views. FINDINGS: The breasts are composed of heterogeneous fibroglandular density tissue, which can limit the detectio n of small underlying mass lesions. A few incidental punctate calcifications. No suspicious mass, asy mmetry, calcifications, or architectural distortion. No evidence of malignancy. MM/[place] [id number] IMPRESSION: BI-RADS: 2-Benign FOLLOW UP: 1 Year Follow-up Recommend return to annual screening mammography.
== END 2021-10-05 14:30 | disposition home or self-care (01) ==
LOC: RADSHAW 14:32
PROVIDERS: PCP Family Medicine; Visit Provider Family Medicine
DX: Z12.31 Encounter for screening mammogram for malignant neoplasm of breast (principal)
CPT/HCPCS: 77063; 77067

== ENCOUNTER 2022-10-11 08:21 | Outpatient (CLI) | payer BC, SELFPAY ==
--- NOTE | 2022-10-11 08:34 | MM_ITS ---
WS: [id number] Bilateral screening 3D tomosynthesis digital mammogram, 10/11/2022 Clinical Data: SCREENING Comparison: 10/05/2021, 06/02/2020, 07/12/2017, 10/18/2013, 07/03/2012, 10/30/2010. Findings: The breast parenchymal pattern shows heterogeneous density. No spiculated masses or clustered calcifi cations are seen. There are no secondary signs of carcinoma. There are mole markers on both breasts. MM/[place] [id number] Impression: 1. Negative bilateral mammogram unchanged. 2. Recommend annual screening mammograms. BIRADS: 1-Negative FOLLOW UP: 1 Year Follow-up The CAD checkering machine adjuster was used.
== END 2022-10-11 08:22 | disposition home or self-care (01) ==
LOC: RAD 08:25
PROVIDERS: PCP Family Medicine; Visit Provider Family Medicine
DX: Z12.31 Encounter for screening mammogram for malignant neoplasm of breast (principal)
CPT/HCPCS: 77063; 77067

== ENCOUNTER 2024-04-15 08:21 | Outpatient (CLI) | payer BC, SELFPAY ==
--- NOTE | 2024-04-15 08:28 | XRR_ITS ---
PROCEDURE INFORMATION: Exam: XR Thoracic Spine Exam date and time: 04/15/2024 8:34 AM Age: 59 years old Clinical indication: Pain in thoracic spine; Patient HX: Consultation for breast reduction; Additional info: Chronic upper back pain TECHNIQUE: Imaging protocol: Radiologic exam of the thoracic spine. Views: 3 views. COMPARISON: CR XR cervical spine 3V* [id number] 04/15/2024 8:34 AM FINDINGS: Bones/joints: The thoracic spine maintains a normal kyphotic curvature. No spondylolisthesis identified. The vertebral bodies maintain normal height. Mild midthoracic degenerative disc changes. Soft tissues: Unremarkable. XR/XR thoracic spine 2V [id number] IMPRESSION: 1. No vertebral body height loss or traumatic malalignment identified. 2. Mild midthoracic degenerative disc changes.
--- NOTE | 2024-04-15 08:28 | XRR_ITS ---
PROCEDURE INFORMATION: Exam: XR Cervical Spine Exam date and time: 04/15/2024 8:34 AM Age: 59 years old Clinical indication: Neck pain; Patient HX: Consultation for breast reduction; Additional info: Chronic upper back pain TECHNIQUE: Imaging protocol: Radiologic exam of the cervical spine. Views: 2 or 3 views. COMPARISON: CR XR thoracic spine 2V [id number] 04/15/2024 8:34 AM FINDINGS: Bones/joints: The cervical spine maintains a normal lordotic curvature. No spondylolisthesis identified. The vertebral bodies maintain normal height. Mild endplate degenerative changes in the cervical spine. Soft tissues: Unremarkable. XR/XR cervical spine 3V* [id number] IMPRESSION: Mild endplate degenerative changes in the cervical spine.
--- NOTE | 2024-04-15 08:28 | MM_ITS ---
WS: [id number] SCREENING DIGITAL BREAST TOMOSYNTHESIS MAMMOGRAM WITH CAD HISTORY: SCREENING COMPARISON: 10/11/2022, 10/05/2021, 06/02/2020 Bilateral CC and MLO with tomosynthesis and synthetic mammography submitted. Computer aided detection analyzed. Breast composition: The breasts are heterogeneously dense, which may obscure small masses. Slightly l obulated high density mass measuring 6 x 4 x 9 mm upper outer quadrant LEFT breast near 10 or 11:00. This mass may have been present on prior studies. On some of the prior examinations there is a mole m arker closely associated with this mass. On the tomographic imaging this is not real superficial. Cou ld potentially be a lymph node. No additional abnormalities within either breast. MM/MM [facility] tomosynthesis [id number] IMPRESSION: BI-RADS: 0 - Incomplete: Need additional imaging evaluation FOLLOW UP: Need Additional Imaging LEFT breast: Spot compression views (CC and MLO). True ML. Ultrasound to follow if abnormality persists. If there is a lymph node in this location please kota with a mole marker.
== END 2024-04-15 08:22 | disposition home or self-care (01) ==
PROVIDERS: PCP Family Medicine; Visit Provider Family Medicine
DX: Z12.31 Encounter for screening mammogram for malignant neoplasm of breast (principal); R92.333 Mammographic heterogeneous density, bilateral breasts; N63.21 Unspecified lump in the left breast, upper outer quadrant; M54.9 Dorsalgia, unspecified
CPT/HCPCS: 72040; 72070; 77063; 77067

== ENCOUNTER 2024-06-03 09:21 | Outpatient (CLI) | payer BC, SELFPAY ==
--- NOTE | 2024-06-03 09:25 | MM_ITS ---
WS: [id number] ADDITIONAL VIEWS LEFT MAMMOGRAM with tomosynthesis. LEFT BREAST ULTRASOUND HISTORY: ABNORMAL MAMMOGRAM OF L BREAST COMPARISON: 04/15/2024, 10/11/2022, 10/05/2021 LEFT MAMMOGRAM: Spot compression views and true ML with tomosynthesis and sympathetic mammography. Slightly lobulated, nearly isoechoic nodule is identified in the upper outer quadrant of the LEFT delicia ast near 2:00. Nodule measures 6 x 6 x 8 mm. This mass is just above the nipple line and posterior. LEFT BREAST ULTRASOUND 2-D and color Doppler imaging submitted. Hypoechoic mass without through transmission is identified in the LEFT breast at 3:00, 4 cm from the nipple. Mass measures 0.7 x 0.7 x 0.8 cm. Mass corresponds to the mammographic abnormality. MM/MM diag LT tomosynthesis [id number] IMPRESSION: BI-RADS: 4- Suspicious Finding - Biopsy Should be Considered FOLLOW UP: Biopsy Recommended 1. Ultrasound-guided biopsy recommended of the mass in the LEFT breast at 3:00 . 2. This may be a complex cyst but there is no through transmission. Consider b iopsy evaluation at this time. Notified Martina Bee MD at 06/03/2024 10:50 AM. Message given to Judy .
== END 2024-06-03 09:22 | disposition home or self-care (01) ==
LOC: RAD 09:23
PROVIDERS: PCP Family Medicine; Visit Provider Family Medicine
DX: N63.21 Unspecified lump in the left breast, upper outer quadrant (principal)
CPT/HCPCS: 76642; 77061; G0279

== ENCOUNTER 2024-06-28 11:40 | Outpatient (CLI) | payer BC, SELFPAY ==
--- NOTE | 2024-06-28 11:42 | US_ITS ---
WS: [id number] ULTRASOUND-GUIDED LEFT BREAST BIOPSY HISTORY: LEFT BREAST MASS COMPARISON: 06/03/2024, 04/15/2024 Procedure, risks and complications are explained to the patient. Medications are reviewed. Consent is obtained. The mass in the LEFT breast is localized with ultrasound. Mass localizes to 3:00, 4 cm from the nippl e. Skin is cleansed with ChloraPrep and anesthetized with 1% buffered lidocaine. Small dermatome is m john. Under sterile conditions mass is biopsied with a 14-gauge Achieve needle. Two core biopsies are performed. Material placed in formalin and sent to pathology for review. No complications encountered . After the initial biopsy at this mass nearly completely collapsed. Only 2 biopsies were performed a nd then the clip was placed while the collapsing knight were still visible. Breast tissue marker (Bard ultrasound enhanced ribbon): Single. Patient left the radiology suite with no complications. Patient is instructed to return to [facility] or [facility] with any concerns. US/[place] [id number] IMPRESSION: 1. Uncomplicated core needle biopsy LEFT breast mass at 3:00. PATHOLOGY: Stromal chronic inflammation and fibrocystic changes. Focal fat necr osis and duct ectasia. No malignancy. RECOMMENDATION: Diagnostic LEFT breast ultrasound in 6 months.
== END 2024-06-28 11:41 | disposition home or self-care (01) ==
LOC: RAD 11:41
PROVIDERS: PCP Family Medicine; Visit Provider Family Medicine
DX: N63.21 Unspecified lump in the left breast, upper outer quadrant (principal); N60.32 Fibrosclerosis of left breast; N60.42 Mammary duct ectasia of left breast; N64.1 Fat necrosis of breast; N60.82 Other benign mammary dysplasias of left breast
CPT/HCPCS: 19083; 88305; 88342